=== PATIENT | male | born 1930 | race Caucasian/White ===

== ENCOUNTER → 2017-03-03 | Day surgery (SDC) | payer MEDICARE, OTHER ==
[~2017-03-03] VITALS: Ht 175.3 cm; Wt 75.8 kg
[~2017-03-03] MED LIST: ALBU8I INH; APIX2.5T PO; ATOR80TA PO; ATOR80TA45 PO; BIOTSPR MT; BIOTSPR PO; CHLORHEXIDINE GLUCONATE 2 % 1 PACK (2 CLOTHS) TOPICAL PRN; D-10TAB3 PO; DO NOT ADM ANY ANTICOAGULANT DRUGS PRN; DYAZ37.5 PO; DYAZ37.57 PO; ESMOLOL HCL 100 MG/10 ML VIAL IV ONE; FISH1000 PO; FLUN25I; FLUN25I EACH NARE; GABA300C5 PO; KLOR10TA PO; LACTATED RINGER'S 1000 ML IV PRN; LIDOCAINE HCL 1% PF 5 ML SYRINGE OTHER ONE; METO1TAB42 PO; METO50CR PO; METOPROLOL TARTRATE 25 MG TAB PO PRN; MORP1INJ45 PO; MULTTAB67 PO; NIAC1TAB3 PO; OMEP20TA39 PO; OMEP20TA93 PO; OXYC-392 PO; OXYMETAZOLINE HCL 0.05% 15 ML NASAL SPRAY ONE; POTA-267 PO; POVIDONE IODINE 5% (ANTISEPSIS KIT) 4 APPLICATIONS EACH NARE PRN; PROPOFOL 200 MG/20 ML AMP IV ONE; SERT-129 PO; SODIUM CHLORID 0.9% 500 ML IV PRN; ST JTAB PO; SUCCINYLCHOLINE CHLORIDE 200 MG/10 ML VIAL IV ONE; TAB-TAB PO; VENTAER INH; VITA1000 PO; ZOFR4TAB PO; ZOFR4TAB3 SL
[2017-03-03 09:20] VITALS: BP 143/89; PULSE 90; RESP 16; TEMP 97.1; O2SAT 97
--- NOTE | 2017-03-03 14:53 | EKG ---
Date Performed: 03/03/2017 Time Performed: 06:19:41 PTAGE: 86 years EKG: ATRIAL FIBRILLATION WITH ABERRANT CONDUCTION OR VENTRICULAR PREMATURE COMPLEXES Since previ ous tracing, no significant change noted ABNORMAL RHYTHM ECG PREVIOUS TRACING : 10/12/2014 11.00 DOCTOR: Holden Smyth Interpretating Date/Time 03/03/2017 14:53:18
--- NOTE | 2017-03-11 08:29 | MP ---
cc: ANUEL COLEMAN MD DATE OF SURGERY 03/03/2017 PREOPERATIVE DIAGNOSIS Right neck mass POSTOPERATIVE DIAGNOSIS Right neck mass EXAMINATION Direct laryngoscopy with biopsy. ANESTHESIA General endotracheal anesthesia was used COMPLICATIONS None INDICATIONS Pain to his right base of tongue, inferior tonsil, pharyngeal wall and vallecula area, mass. 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 The risks and benefits were described in detail to the patient. He understood these and wished to proceed as planned. DESCRIPTION OF OPERATIVE COURSE After informed consent was obtained, the patient taken to the operating room, placed supine on the operating room table. General endotracheal anesthesia was initiated following which the head was turned approximately to 90 degrees. The face was then prepped and draped in standard surgical fashion. Once this completed, the operative time-out was undertaken and once everyone was in agreement, the procedure moved forward as planned. At this time, the upper dentition with protected with a wet Ray-Zainab as well as a mouth guard. Once this was completed, a Storz laryngoscope was inserted into the oral cavity. The oral cavity was examined. There were no lesions in the oral cavity. The oropharynx and examined. There was an exophytic mass in the right base of tongue, right tonsillar area, along the right lateral pharyngeal wall and the vallecula. This was biopsied, sent for permanent section pathology. Once this was completed, the remainder of the oropharynx, hypopharynx and endolarynx was examined. There were no new masses, lesions or ulcerations noted. No further lesions or ulcerations noted. The mass measured just a little at 2 cm in total dimension. Once this was completed and proper hemostasis was obtained with Afrin soaked pledgets, this marked the end of the procedure. The right Ray-Zainab and the mouth guard were removed. The patient was then awoken and transferred to PACU in stable condition. Anuel Coleman AT/DJL /4:35 PM /8:09 AM
== END | disposition home or self-care (01) ==
LOC: HSDC 05:20
PROVIDERS: ATTEND Otolaryngology
DX: C01 Malignant neoplasm of base of tongue (principal); C09.8 Malignant neoplasm of overlapping sites of tonsil; I10 Essential (primary) hypertension; Z85.820 Personal history of malignant melanoma of skin; Z01.810 Encounter for preprocedural cardiovascular examination
CPT/HCPCS: 00320; 31535; 88305; 93005; J0330; J7120; 88304